=== PATIENT | male | born 1950 | race Hispanic/Latino ===

== ENCOUNTER 2021-11-27 21:33 | Inpatient (IN) | payer MEDICARE ==
[~2021-11-27] VITALS: Ht 180.3 cm; Wt 67.9 kg
[2021-11-27] MEDS ORDERED: 0.9%NACL 1000ML 1,000 ML IV SCH ×2 (21:42→22:00)
[2021-11-27 21:54] LABS: BASOPHILS % (AUTO) 0.3 % (0.0-5.0); EOSINOPHILS % (AUTO) 0.4 % (0.0-8.0); HEMATOCRIT 42.3 % (42-54); LYMPHOCYTES % (AUTO) 4.1 % (21.0-51.0); MEAN CORPUSCULAR HEMOGLOBIN 31.4 pg (27.0-33.0); MEAN CORPUSCULAR HGB CONC 32.2 g/dL (32.0-36.0); MEAN CORPUSCULAR VOLUME 97.7 fL (79-99); MONOCYTES % (AUTO) 4.9 % (3.0-13.0); NEUTROPHILS % (AUTO) 89.7 % (40.0-77.0); PLATELET COUNT (AUTO) 329 K/uL (130-400); RED BLOOD CELL COUNT(AUTO) 4.33 MIL/uL (4.50-6.20); WHITE BLOOD COUNT (AUTO) 20.6 K/uL (4.8-10.8)
[2021-11-27 21:54] LABS: ABG BASE EXCESS -5.8 mmol/L (-2.0-3.0); ABG HCO3 16.8 mmol/L (21.0-28.0); ABG OXYGEN SATURATION 95.4 % (95.0-99.0); ABG PCO2 26 mmHg (35-48)
[2021-11-27] MEDS ORDERED: VANCOMYCIN 1G VIAL IVPB ONE (22:00)
[2021-11-27] MEDS ORDERED: ZOSYN 3.375GM +NS 50ML IV SCH (22:00)
[2021-11-27 22:13] LABS: ALBUMIN 2.5 g/dL (3.5-5.0); CREATININE 3.6 mg/dL (0.5-1.5); POTASSIUM 3.8 mmol/L (3.5-5.1); TOTAL PROTEIN, SERUM 9.4 g/dL (6.0-8.3)
[2021-11-27] MEDS ORDERED: ACETAMINOPHEN 650 MG SUPPOSITORY RC ONE (22:30)
[2021-11-27] MEDS ORDERED: INSULIN HUMULIN R 100 UNIT/ML 3ML SQ ONE (22:30)
[2021-11-27] MEDS ORDERED: LACTULOSE 20 GM/30 ML UDCUP PO PRN (23:30)
[2021-11-27] MEDS ORDERED: HYDRALAZINE 20MG/ML VIAL IV PRN (23:30)
[2021-11-27] MEDS ORDERED: LABETALOL 20MG SYG IV PRN (23:30)
[2021-11-27] MEDS: LACTATED RINGERS 1000ML 1,000 ML IV SCH (23:30)
[2021-11-27] MEDS ORDERED: ONDANSETRON 4MG INJ IVP PRN (23:30)
[2021-11-27] MEDS ORDERED: CLONIDINE HCL 0.1 MG TABLET PO PRN (23:30)
[2021-11-28] VITALS (40 sets, daily range): BP systolic 70–156; BP diastolic 40–112
[2021-11-28] MEDS ORDERED: LACTATED RINGERS IV ONE (03:00)
[2021-11-28] MEDS ORDERED: NOREPINEPHRIN 4MG/NS 250ML 250 ML IV PRN (03:30)
[2021-11-28] MEDS ORDERED: 0.9%NACL 1000ML 1,000 ML IV SCH (03:30)
[2021-11-28] MEDS: LACTATED RINGERS 1000ML 1,000 ML IV SCH ×2 (04:42→12:24)
[2021-11-28 06:25] LABS: HEMATOCRIT 33.4 % (42-54); MEAN CORPUSCULAR HEMOGLOBIN 31.4 pg (27.0-33.0); MEAN CORPUSCULAR HGB CONC 32.3 g/dL (32.0-36.0); MEAN CORPUSCULAR VOLUME 97.1 fL (79-99); RED BLOOD CELL COUNT(AUTO) 3.44 MIL/uL (4.50-6.20); RED CELL DISTRIBUTION WIDTH 15.1 % (11.0-15.5); WHITE BLOOD COUNT (AUTO) 22.8 K/uL (4.8-10.8)
[2021-11-28] MEDS ORDERED: VANCOMYCIN 1G/250ML KIT 250 ML IV SCH ×2 (06:30→14:00)
[2021-11-28 06:55] LABS: CREATININE 3.3 mg/dL (0.5-1.5); MAGNESIUM 2.4 mg/dL (1.80-2.40); PHOSPHORUS 2.3 mg/dL (2.5-4.9); POTASSIUM 3.7 mmol/L (3.5-5.1)
[2021-11-28] MEDS: INSULIN HUMULIN R 100 UNIT/ML 3ML SQ SCH ×4 (07:01→20:40)
[2021-11-28] MEDS ORDERED: CEFTRIAXONE 1G VIAL IVP SCH (09:00)
[2021-11-28] MEDS: ENOXAPARIN SODIUM 30 MG/0.3 ML SQ SCH (09:43)
[2021-11-28] MEDS ORDERED: VANCOMYCIN PROTOCOL PER PHARMACY IV SCH (13:30)
[2021-11-28] MEDS ORDERED: INSULIN GLARGINE 100 UNITS/ML 10 ML VIAL SQ SCH (13:30)
[2021-11-28] MEDS ORDERED: ZOSYN 3.375GM +NS 50ML IV SCH (14:00)
[2021-11-28] MEDS: DEXTROSE 5 %-0.45 % NACL 1,000 ML IV SCH ×2 (14:31→20:37)
[2021-11-28] MEDS: PANTOPRAZOLE 40 MG/VIAL IVP SCH (14:38)
[2021-11-28] MEDS ORDERED: PARO-66 PO (15:48)
[2021-11-28] MEDS ORDERED: LISI5TAB21 PO (15:48)
[2021-11-28] MEDS ORDERED: ZINC220T4 PO (15:48)
[2021-11-28] MEDS ORDERED: CARV12.511 PO (15:48)
[2021-11-28] MEDS ORDERED: ASCO500T92 PO (15:48)
[2021-11-28] MEDS ORDERED: AMLO5TAB4 PO (15:48)
[2021-11-28] MEDS ORDERED: FERR-72 PO (15:48)
[2021-11-28] MEDS ORDERED: RISP1TAB89 PO (15:48)
[2021-11-28] MEDS ORDERED: INSU100C14 SQ (15:48)
[2021-11-28] MEDS ORDERED: TRAZ-187 PO (15:48)
[2021-11-28] MEDS ORDERED: ZOLP10TA2 PO (15:48)
[2021-11-28] MEDS ORDERED: LEVO137C4 PO (15:48)
[2021-11-28] MEDS ORDERED: DIVA125T2 PO (15:48)
[2021-11-28] MEDS ORDERED: TAMS-1 PO (15:48)
[2021-11-28] MEDS ORDERED: BENZ1TAB10 PO (15:48)
[2021-11-28] MEDS ORDERED: INSU100I26 SQ (15:48)
[2021-11-28] MEDS ORDERED: MEDR5TAB PO (15:48)
[2021-11-28] MEDS ORDERED: EMPA10TA PO (15:48)
[2021-11-28] MEDS ORDERED: HYDR-3422 PO (15:48)
[2021-11-28] MEDS ORDERED: EZET10TA48 PO (15:48)
[2021-11-28] MEDS ORDERED: OMEP40CA21 PO (15:48)
[2021-11-28] MEDS ORDERED: MULT-1192 PO (15:48)
[2021-11-28] MEDS: ZOSYN 3.375GM +NS 50ML IV SCH (20:38)
[2021-11-29] VITALS (24 sets, daily range): BP systolic 107–159; BP diastolic 41–97
[2021-11-29] MEDS: DEXTROSE 5 %-0.45 % NACL 1,000 ML IV SCH (01:59)
[2021-11-29 03:32] LABS: HEMATOCRIT 30.9 % (42-54); MEAN CORPUSCULAR HEMOGLOBIN 30.9 pg (27.0-33.0); MEAN CORPUSCULAR HGB CONC 31.4 g/dL (32.0-36.0); MEAN CORPUSCULAR VOLUME 98.4 fL (79-99); RED BLOOD CELL COUNT(AUTO) 3.14 MIL/uL (4.50-6.20); RED CELL DISTRIBUTION WIDTH 15.7 % (11.0-15.5); WHITE BLOOD COUNT (AUTO) 14.4 K/uL (4.8-10.8)
[2021-11-29 03:47] LABS: CREATININE 2.9 mg/dL (0.5-1.5)
[2021-11-29] MEDS: INSULIN HUMULIN R 100 UNIT/ML 3ML SQ SCH ×4 (06:19→20:25)
[2021-11-29] MEDS: ENOXAPARIN SODIUM 30 MG/0.3 ML SQ SCH (08:28)
[2021-11-29] MEDS: DEXTROSE 5%-WATER 1,000 ML IV SCH ×2 (08:28→17:52)
[2021-11-29] MEDS: PANTOPRAZOLE 40 MG/VIAL IVP SCH (08:28)
[2021-11-29] MEDS: VANCOMYCIN 500MG+NS 100ML 100 ML IV SCH (08:28)
[2021-11-29] MEDS: ZOSYN 3.375GM +NS 50ML IV SCH ×2 (08:28→20:24)
[2021-11-29] MEDS: INSULIN GLARGINE 100 UNITS/ML 10 ML VIAL SQ SCH (09:07)
[2021-11-29] MEDS ORDERED: ACETAMINOPHEN 325 MG TAB PO PRN (16:00)
[2021-11-29] MEDS ORDERED: ACETAMINOPHEN 325 MG TAB ONE (16:03)
[2021-11-30] VITALS (15 sets, daily range): BP systolic 106–158; BP diastolic 53–87
[2021-11-30] MEDS: DEXTROSE 5%-WATER 1,000 ML IV SCH ×2 (02:13→13:02)
[2021-11-30] MEDS: INSULIN HUMULIN R 100 UNIT/ML 3ML SQ SCH ×4 (06:31→21:00)
[2021-11-30] MEDS: ZOSYN 3.375GM +NS 50ML IV SCH ×2 (08:02→22:00)
[2021-11-30] MEDS: PANTOPRAZOLE 40 MG/VIAL IVP SCH (08:02)
[2021-11-30] MEDS: ENOXAPARIN SODIUM 30 MG/0.3 ML SQ SCH (08:03)
[2021-11-30] MEDS: INSULIN GLARGINE 100 UNITS/ML 10 ML VIAL SQ SCH (08:04)
[2021-11-30 08:46] LABS: CREATININE 2.4 mg/dL (0.5-1.5); POTASSIUM 3.5 mmol/L (3.5-5.1)
[2021-11-30] MEDS ORDERED: 0.9%NACL 100ML 100 ML ONE (10:00)
[2021-11-30] MEDS: VANCOMYCIN 500MG+NS 100ML 100 ML IV SCH (10:02)
[2021-11-30] MEDS: SODIUM HYPOCHLORITE 0.125% 473 ML SOLUTION TP SCH (21:00)
[2021-12-01] VITALS (14 sets, daily range): BP systolic 123–159; BP diastolic 50–108
[2021-12-01] MEDS: INSULIN HUMULIN R 100 UNIT/ML 3ML SQ SCH ×4 (06:50→21:50)
[2021-12-01] MEDS: ENOXAPARIN SODIUM 30 MG/0.3 ML SQ SCH (09:00)
[2021-12-01] MEDS: SODIUM HYPOCHLORITE 0.125% 473 ML SOLUTION TP SCH ×2 (09:00→21:52)
[2021-12-01] MEDS: INSULIN GLARGINE 100 UNITS/ML 10 ML VIAL SQ SCH (09:00)
[2021-12-01] MEDS: PANTOPRAZOLE 40 MG/VIAL IVP SCH (09:53)
[2021-12-01] MEDS: VANCOMYCIN 500MG+NS 100ML 100 ML IV SCH (09:53)
[2021-12-01 12:05] LABS: HEMATOCRIT 29.5 % (42-54); MEAN CORPUSCULAR HEMOGLOBIN 31.3 pg (27.0-33.0); MEAN CORPUSCULAR HGB CONC 32.9 g/dL (32.0-36.0); MEAN CORPUSCULAR VOLUME 95.2 fL (79-99); NUCLEATED RED BLOOD CELLS 0.1 % (0.0-0.19); RED BLOOD CELL COUNT(AUTO) 3.1 MIL/uL (4.50-6.20); RED CELL DISTRIBUTION WIDTH 14.3 % (11.0-15.5); WHITE BLOOD COUNT (AUTO) 15.7 K/uL (4.8-10.8)
[2021-12-01 12:22] LABS: ALBUMIN 1.6 g/dL (3.5-5.0); POTASSIUM 3.8 mmol/L (3.5-5.1); TOTAL PROTEIN, SERUM 6.5 g/dL (6.0-8.3)
[2021-12-01] MEDS ORDERED: 0.9%NACL 1000ML 1,000 ML IV ONE (12:25)
[2021-12-01] MEDS ORDERED: PROPOFOL 10 MG/ML 20ML VIAL IV ONE (12:33)
[2021-12-01] MEDS ORDERED: ROCURONIUM 10MG/1ML SYR 10 MG/ML ML ONE (12:33)
[2021-12-01] MEDS ORDERED: FENTANYL CITRATE PF 50 MCG/1 ML 2ML VIAL ONE (12:33)
[2021-12-01] MEDS ORDERED: LIDOCAINE PF 100MG/5ML (2%) SYRINGE 5ML ONE (12:33)
[2021-12-01] MEDS ORDERED: NEOMY SULF/BACITRAC ZN/POLY OINT 30GM TUBE TP ONE (13:48)
[2021-12-01] MEDS ORDERED: GLYCOPYRROLATE 1 MG/5 ML SYRINGE ONE (13:54)
[2021-12-01] MEDS ORDERED: NEOSTIGMINE 5MG/5ML SYR IV ONE (13:54)
[2021-12-01] MEDS: DEXTROSE 5%-WATER 1,000 ML IV SCH ×2 (15:22)
[2021-12-01] MEDS: ZOSYN 3.375GM +NS 50ML IV SCH ×2 (15:23→21:47)
[2021-12-01 16:23] LABS: APPEARANCE,URINE CLOUDY (CLEAR); BILIRUBIN,URINE NEGATIVE (NEGATIVE); COLOR,URINE DARK YELLOW (YELLOW); GLUCOSE, URINE (UA) 500 mg/dL (NEGATIVE); KETONES,URINE NEGATIVE (NEGATIVE); LEUKOCYTE ESTERASE ,URINE MODERATE (NEGATIVE); NITRATE,URINE NEGATIVE (NEGATIVE); OCCULT BLOOD,URINE LARGE (NEGATIVE); PH,URINE 6.5 (5.0-8.0); PROTEIN,URINE >=300 mg/dL (NEGATIVE); UROBILINOGEN,URINE 0.2 mg/dL (0.2-1.0)
[2021-12-01 16:43] LABS: BACTERIA,URINE Few /HPF (None Seen); MUCUS,URINE Few LPF (None Seen); SQUAMOUS EPITHELIAL CELL,UR Rare /HPF (0-2); WBC,URINE 51-100 /HPF (0-1)
[2021-12-02] VITALS (17 sets, daily range): BP systolic 94–151; BP diastolic 27–72
[2021-12-02] MEDS: DEXTROSE 5%-WATER 1,000 ML IV SCH ×3 (01:18→20:09)
[2021-12-02 04:26] LABS: HEMATOCRIT 27.6 % (42-54); MEAN CORPUSCULAR HEMOGLOBIN 31.1 pg (27.0-33.0); MEAN CORPUSCULAR HGB CONC 32.6 g/dL (32.0-36.0); MEAN CORPUSCULAR VOLUME 95.5 fL (79-99); RED BLOOD CELL COUNT(AUTO) 2.89 MIL/uL (4.50-6.20); RED CELL DISTRIBUTION WIDTH 13.8 % (11.0-15.5)
[2021-12-02 04:43] LABS: ALBUMIN 1.4 g/dL (3.5-5.0); CREATININE 1.9 mg/dL (0.5-1.5); MAGNESIUM 1.8 mg/dL (1.80-2.40); POTASSIUM 3.5 mmol/L (3.5-5.1)
[2021-12-02] MEDS: ZOSYN 3.375GM +NS 50ML IV SCH ×3 (05:13→22:21)
[2021-12-02] MEDS ORDERED: KCL 20 MEQ ERTAB PO PRN (05:30)
[2021-12-02] MEDS ORDERED: POTASSIUM CHLORIDE 10% ELIXIR 20 MEQ/15 ML UDCUP PO PRN (05:30)
[2021-12-02] MEDS ORDERED: POTASSIUM CHLORIDE 10MEQ/100ML 100 ML IV PRN (05:30)
[2021-12-02] MEDS ORDERED: LIDOCAINE HCL-MPF 1% 2ML VIAL IV PRN (05:30)
[2021-12-02] MEDS: INSULIN HUMULIN R 100 UNIT/ML 3ML SQ SCH ×4 (06:24→21:00)
[2021-12-02] MEDS ORDERED: MAGNESIUM 2GM PREMIX 50ML 50 ML IV PRN (06:30)
[2021-12-02] MEDS: ENOXAPARIN SODIUM 30 MG/0.3 ML SQ SCH (09:14)
[2021-12-02] MEDS: INSULIN GLARGINE 100 UNITS/ML 10 ML VIAL SQ SCH (09:16)
[2021-12-02] MEDS: NEOMY SULF/BACITRAC ZN/POLY OINT 30GM TUBE TP SCH (09:17)
[2021-12-02] MEDS: VANCOMYCIN 500MG+NS 100ML 100 ML IV SCH (09:17)
[2021-12-02] MEDS: PANTOPRAZOLE 40 MG/VIAL IVP SCH (09:19)
[2021-12-02] MEDS: SODIUM HYPOCHLORITE 0.125% 473 ML SOLUTION TP SCH ×2 (09:22→20:09)
[2021-12-03] VITALS: BP 112/58
[2021-12-03 03:55] VITALS: BP 144/66
[2021-12-03 05:36] LABS: HEMATOCRIT 25.2 % (42-54); MEAN CORPUSCULAR HEMOGLOBIN 31.5 pg (27.0-33.0); MEAN CORPUSCULAR HGB CONC 33.7 g/dL (32.0-36.0); MEAN CORPUSCULAR VOLUME 93.3 fL (79-99); RED BLOOD CELL COUNT(AUTO) 2.7 MIL/uL (4.50-6.20); RED CELL DISTRIBUTION WIDTH 13.9 % (11.0-15.5); WHITE BLOOD COUNT (AUTO) 13.2 K/uL (4.8-10.8)
[2021-12-03] MEDS: ZOSYN 3.375GM +NS 50ML IV SCH ×3 (05:44→22:43)
[2021-12-03 05:48] LABS: ALBUMIN 1.4 g/dL (3.5-5.0); CREATININE 1.7 mg/dL (0.5-1.5); MAGNESIUM 1.8 mg/dL (1.80-2.40); POTASSIUM 3.4 mmol/L (3.5-5.1); TOTAL PROTEIN, SERUM 6.1 g/dL (6.0-8.3)
[2021-12-03] MEDS: INSULIN HUMULIN R 100 UNIT/ML 3ML SQ SCH ×4 (06:27→21:00)
[2021-12-03 08:00] VITALS: BP 140/58
[2021-12-03] MEDS: PANTOPRAZOLE 40 MG/VIAL IVP SCH (09:00)
[2021-12-03] MEDS: SODIUM HYPOCHLORITE 0.125% 473 ML SOLUTION TP SCH ×2 (09:01→21:09)
[2021-12-03] MEDS: ENOXAPARIN SODIUM 30 MG/0.3 ML SQ SCH (09:01)
[2021-12-03] MEDS: NEOMY SULF/BACITRAC ZN/POLY OINT 30GM TUBE TP SCH (09:02)
[2021-12-03] MEDS: INSULIN GLARGINE 100 UNITS/ML 10 ML VIAL SQ SCH (09:04)
[2021-12-03 12:00] VITALS: BP 151/69
[2021-12-03] MEDS: VANCOMYCIN 1G/250ML KIT 250 ML IV SCH (13:19)
[2021-12-03 16:00] VITALS: BP 154/76
[2021-12-03 20:00] VITALS: BP 136/64
[2021-12-04] VITALS: BP 109/66
[2021-12-04 04:00] VITALS: BP 149/65
[2021-12-04 04:59] LABS: HEMATOCRIT 25.6 % (42-54); MEAN CORPUSCULAR HGB CONC 33.6 g/dL (32.0-36.0); MEAN CORPUSCULAR VOLUME 92.4 fL (79-99); RED BLOOD CELL COUNT(AUTO) 2.77 MIL/uL (4.50-6.20); RED CELL DISTRIBUTION WIDTH 13.5 % (11.0-15.5); WHITE BLOOD COUNT (AUTO) 13.2 K/uL (4.8-10.8)
[2021-12-04 05:14] LABS: ALBUMIN 1.5 g/dL (3.5-5.0); CREATININE 1.5 mg/dL (0.5-1.5); MAGNESIUM 1.7 mg/dL (1.80-2.40); POTASSIUM 3.2 mmol/L (3.5-5.1); TOTAL PROTEIN, SERUM 6.1 g/dL (6.0-8.3)
[2021-12-04] MEDS: ZOSYN 3.375GM +NS 50ML IV SCH (06:42)
[2021-12-04] MEDS: INSULIN HUMULIN R 100 UNIT/ML 3ML SQ SCH ×2 (06:43→11:14)
[2021-12-04 08:00] VITALS: BP 164/75
[2021-12-04] MEDS ORDERED: 0.9% NACL 250ML 250 ML ONE (09:11)
[2021-12-04] MEDS: PANTOPRAZOLE 40 MG/VIAL IVP SCH (09:13)
[2021-12-04] MEDS: SODIUM HYPOCHLORITE 0.125% 473 ML SOLUTION TP SCH (09:14)
[2021-12-04] MEDS: NEOMY SULF/BACITRAC ZN/POLY OINT 30GM TUBE TP SCH (09:14)
[2021-12-04] MEDS: ENOXAPARIN SODIUM 30 MG/0.3 ML SQ SCH (09:14)
[2021-12-04] MEDS: VANCOMYCIN 1G/250ML KIT 250 ML IV SCH (09:15)
[2021-12-04] MEDS: INSULIN GLARGINE 100 UNITS/ML 10 ML VIAL SQ SCH (09:20)
[2021-12-04] MEDS ORDERED: PHARMACY COMMUNICATION MISC SCH (10:00)
[2021-12-05] MEDS ORDERED: AMOX/CLAV 875/125MG TAB PO SCH (07:30)
== END 2021-12-04 13:15 | DRG 871 ==
LOC: EDH 21:33 → OBSVTOIN 21:34 → EDHIP 21:34 → 3CH 11-28 02:20 → 2CH 11-28 07:20 → 4AH 11-30 10:35 → 2BH 12-01 14:18 → 3BH 12-02 12:57
PROVIDERS: ADMIT Internal Medicine Critical Care Medicine; ATTEND Internal Medicine Critical Care Medicine
PROC: 0VTTXZZ Resection of Prepuce, External Approach (ICD-10-PCS; principal; 2021-12-01 12:33)
PROC: 0T9B70Z Drainage of Bladder with Drainage Device, Via Natural or Artificial Opening (ICD-10-PCS; 2021-12-01 12:33)
DX: A41.89 Other specified sepsis (principal); E43 Unspecified severe protein-calorie malnutrition; G92.8 Other toxic encephalopathy; L89.154 Pressure ulcer of sacral region, stage 4; R65.21 Severe sepsis with septic shock; E87.0 Hyperosmolality and hypernatremia; N17.9 Acute kidney failure, unspecified; Z20.822 Contact with and (suspected) exposure to COVID-19; R33.9 Retention of urine, unspecified; N47.1 Phimosis; I12.9 Hypertensive chronic kidney disease with stage 1 through stage 4 chronic kidney disease, or unspecified chronic kidney disease; E11.22 Type 2 diabetes mellitus with diabetic chronic kidney disease; E11.65 Type 2 diabetes mellitus with hyperglycemia; E78.00 Pure hypercholesterolemia, unspecified; E86.9 Volume depletion, unspecified; R13.10 Dysphagia, unspecified; N18.9 Chronic kidney disease, unspecified; L90.0 Lichen sclerosus et atrophicus; F20.9 Schizophrenia, unspecified; R33.8 Other retention of urine; F31.9 Bipolar disorder, unspecified; F03.90 Unspecified dementia, unspecified severity, without behavioral disturbance, psychotic disturbance, mood disturbance, and anxiety; K21.9 Gastro-esophageal reflux disease without esophagitis; E87.8 Other disorders of electrolyte and fluid balance, not elsewhere classified; Z74.01 Bed confinement status; Z91.19 Patient's noncompliance with other medical treatment and regimen; Z86.73 Personal history of transient ischemic attack (TIA), and cerebral infarction without residual deficits; Z68.20 Body mass index [BMI] 20.0-20.9, adult
CPT/HCPCS: 36415; 36600; 71045; 74176; 74230; 74430; 80048; 80053; 80202; 81001; 82010; 82435; 82803; 82947; 82948; 83605; 83735; 83880; 84100; 84132; 84145; 84295; 84484; 85018; 85025; 85027; 87040; 87070; 87076; 87077; 87088; 87186; 87635; 87804; 92610; 92611; 93005; 93306; 93356; 99291; A4354; A4355; C1758; C9113; C9803; G0378; J0696; J1650; J1815; J2001; J2543; J2704; J2710; J3010; J3370; J3490; J7030; J7042; J7050; J7070; J7120; Q9958